=== PATIENT | female | born 1950 | race Caucasian/White ===

== ENCOUNTER 2021-11-17 19:49 | Inpatient (IN) | payer MEDICARE, BC ==
[~2021-11-17] VITALS: Ht 167.6 cm; Wt 88.5 kg
--- NOTE | 2021-11-17 12:00 | NUR ---
Received patient in [facility] with VS WNL. Alert and oriented x 4. Verbal. On 2 L NC. No signs of respiratory distress. Positive for COVID today 11/17. No cough noted. Able to ambulate with assistance. Gait unsteady. Uses bedpan. x1 void. Antibiotic given IV for UTI. Skin intact. Addendum: 11/18/21 at 0315 by ISIDORO NICHOLSON RN time error ---11/17/21 ---[id number] Received patient in [facility] with VS WNL. Alert and oriented x 4. Verbal. On 2 L NC. No signs of respiratory distress. Positive for COVID today 11/17. No cough noted. Able to ambulate with assistance. Gait unsteady. Uses bedpan. x1 void. Antibiotic given IV for UTI. Skin intact. Addendum: 11/18/21 at 0344 by ISIDORO NICHOLSON RN Acetaminophen order clarified for PO and given for headache. Addendum: 11/18/21 at 0657 by ISIDORO NICHOLSON RN Blood sugar was 76. Reeds juice given. Blood sugar rechecked after 30 min and is it at 112. Labs drawn. Patient SR on tele.
--- NOTE | 2021-11-17 19:55 | NUR ---
Dr. Vásquez at bedside for MSE.
[2021-11-17] MEDS ORDERED: IV NORMAL SALINE 1000 ML BAG IV ONE (20:15)
--- NOTE | 2021-11-17 20:29 | NUR ---
Xray at bedside.
[2021-11-17 20:37] LABS: ABG BASE EXCESS -5.8 mmol/L; ABG HCO3 19.9 mmol/L; ABG PCO2 39.7 mmHg (35.0-45.0); ABG PH 7.318 (7.350-7.450); ABG PO2 87.1 mmHg (75.0-100.0); ABG SITE RIGHT RADIAL; ABG TOTAL HEMOGLOBIN 11.3 G/dL (12.0-16.0); COHb 0.4 % (0.5-1.5); MetHb 0.3 % (0.0-1.5); VENT MODE Nasal Cannula
[2021-11-17] MEDS: IV NS 1000 ML 1,000 ML IV ONE ×2 (20:45→21:38)
[2021-11-17] MEDS ORDERED: CEFTRIAXONE 1 G in IV DEXTROSE 5% 50 ML IV ONE (20:45)
[2021-11-17] MEDS ORDERED: IV NS 1000 ML 1,000 ML IV ONE (20:45)
[2021-11-17 20:59] LABS: HEMATOCRIT 31.7 % (31.2-41.9); MEAN CORPUSCULAR HEMOGLOBIN 30.3 uug (24.7-32.8); PLATELET COUNT (AUTO) 147 K/uL (179-408)
[2021-11-17 21:02] LABS: CARBON DIOXIDE 23 mmol/L (21-32); CHLORIDE 104 mmol/L (98-107); CREATININE 1.6 mg/dL (0.6-1.3); GLUCOSE 158 mg/dL (74-106); POTASSIUM 4.5 mmol/L (3.5-5.1); UREA NITROGEN, BLOOD 31 mg/dL (7-18)
[2021-11-17] MEDS ORDERED: ZOLP5TAB2 PO (21:04)
[2021-11-17] MEDS ORDERED: LEFL20TA PO (21:04)
[2021-11-17] MEDS ORDERED: AMIT25TA9 PO (21:04)
[2021-11-17] MEDS ORDERED: LEVO200T PO (21:04)
[2021-11-17] MEDS ORDERED: METO-295 PO (21:04)
[2021-11-17] MEDS ORDERED: LIOT5TAB11 PO (21:04)
[2021-11-17] MEDS ORDERED: FENO145T PO (21:04)
[2021-11-17] MEDS ORDERED: METO25TA3 PO (21:04)
[2021-11-17] MEDS ORDERED: VENL75TA4 PO (21:04)
[2021-11-17] MEDS ORDERED: OXYC10TA49 PO (21:04)
[2021-11-17] MEDS ORDERED: HYDR200T81 PO (21:04)
[2021-11-17] MEDS ORDERED: ONDA4TAB5 PO (21:04)
[2021-11-17] MEDS ORDERED: ALFU10TA PO (21:04)
[2021-11-17] MEDS ORDERED: MULT-594 PO (21:04)
[2021-11-17] MEDS ORDERED: PREG100C PO (21:04)
[2021-11-17] MEDS ORDERED: MORP15TA PO (21:04)
[2021-11-17] MEDS ORDERED: TIZA4CAP PO (21:04)
[2021-11-17] MEDS ORDERED: ROSU5TAB PO (21:04)
[2021-11-17] MEDS ORDERED: BETH10TA2 PO (21:04)
[2021-11-17] MEDS ORDERED: GLIP5TAB13 PO (21:04)
[2021-11-17] MEDS ORDERED: MV-M1TAB18 PO (21:04)
[2021-11-17 21:15] LABS: ALANINE AMINOTRANSFERASE 99 U/L (14-59); ALKALINE PHOSPHATASE 46 U/L (50-136); ASPARTATE AMINOTRANSFERASE 189 U/L (15-37); BILIRUBIN,DIRECT 0.1 mg/dL (0.0-0.2); BILIRUBIN,TOTAL 0.2 mg/dL (0.2-1.0); TOTAL PROTEIN, SERUM 7.4 g/dL (6.4-8.2)
[2021-11-17] MEDS ORDERED: CEFTRIAXONE /D5W 50ML IVPB **ER PYXIS IV ONE (21:38)
--- NOTE | 2021-11-17 22:00 | NUR ---
Patient did not appear to have any lactic acidosis with a level of 0.6. Patient noted to have a slight elevation in BNP. ERMD consulted and advised to only infuse a total of 2L of NaCl.
[2021-11-17 22:26] LABS: *BILIRUBIN,URIN NEGATIVE (NEGATIVE); *BLOOD, URINE 2+ (NEGATIVE); *CLARITY,URINE CLEAR (CLEAR); *COLOR,URINE YELLOW (YELLOW); *KETONES,URINE NEGATIVE (NEGATIVE); *UROBILINOGEN,URINE 0.2 E.U./dl (NORMAL); LEUKOCYTE ESTERASE ,URINE 1+ (NEGATIVE); NITRITE, URINE POSITIVE (NEGATIVE); UGLUCOSE NEGATIVE (NEGATIVE)
--- NOTE | 2021-11-17 22:45 | NUR ---
EPIC panel call placed, awaiting call back from Brie Bravo CLEARANCE COORDINATOR
[2021-11-17] MEDS ORDERED: ONDANSETRON HCL 4 MG TABLET PO PRN (23:00)
[2021-11-17] MEDS ORDERED: ONDANSETRON 4 MG/2 ML VIAL IV PRN (23:00)
[2021-11-17] MEDS ORDERED: METOCLOPRAMIDE HCL 10 MG TABLET PO PRN (23:00)
[2021-11-17] MEDS ORDERED: ALBUTEROL SULFATE 8 GM HFA.AER.AD IH PRN (23:00)
[2021-11-17] MEDS ORDERED: ACETAMINOPHEN 650 MG/20.3 ML LIQUID UDC GT PRN (23:00)
[2021-11-17] MEDS ORDERED: AZITHROMYCIN IV 500 MG in IV DEXTROSE 5% 250 ML IV SCH ×2 (23:00→23:15)
[2021-11-17] MEDS ORDERED: Medication Not On Formulary EA (Oxycodone Hcl 1 TAB) PO PRN (23:00)
--- NOTE | 2021-11-17 23:01 | NUR ---
Brie Bravo returned call and patient will be going to be admitted to TELE. Patient will be going into room 318.
[2021-11-17] MEDS ORDERED: INSULIN REGULAR, HUMAN 300 UNIT/3 ML VIAL SQ PRN (23:15)
[2021-11-17] MEDS ORDERED: DEXTROSE 50% 50 ML DISP.SYRIN IV PRN (23:15)
--- NOTE | 2021-11-17 23:25 | NUR ---
Report given to KAI Gusman
[2021-11-17] MEDS ORDERED: TIZANIDINE HCL 4 MG TABLET PO PRN (23:45)
[2021-11-17] MEDS ORDERED: levoFLOXacin 500 MG/D5W 500 MG in PREMIXED 1 EACH IV SCH (23:45)
[2021-11-18] MEDS ORDERED: levoFLOXacin 500 MG/D5W 500 MG in PREMIXED 1 EACH IV ONE ×2
[2021-11-18 00:11] LABS: BACTERIA,URINE FEW /HPF (NONE SEEN); SQUAMOUS EPITHELIAL CELL,UR FEW /HPF (NONE SEEN); WBC,URINE 0-3 /HPF (0-3)
[2021-11-18 00:12] LABS: URIC ACID CRYSTALS,URINE MANY /HPF (NONE SEEN)
[2021-11-18] MEDS ORDERED: levoFLOXacin 500 MG/D5W 100 ML ONE (01:02)
[2021-11-18] MEDS: ACETAMINOPHEN 650 MG/20.3 ML LIQUID UDC PO PRN (03:19)
[2021-11-18 04:48] VITALS: BP 106/49
[2021-11-18] MEDS: LIOTHYRONINE SODIUM 5 MCG TABLET PO SCH (06:02)
[2021-11-18] MEDS: LEVOTHYROXINE SODIUM 200 MCG TABLET PO SCH (06:02)
[2021-11-18] MEDS: BLOOD SUGAR DIAGNOSTIC 1 EACH STRIP VI SCH ×4 (06:30→22:24)
[2021-11-18 07:21] LABS: HEMATOCRIT 29.6 % (31.2-41.9); MEAN CORPUSCULAR HEMOGLOBIN 30.9 uug (24.7-32.8); MEAN CORPUSCULAR VOLUME 92.1 fL (75.5-95.3); PLATELET COUNT (AUTO) 136 K/uL (179-408)
--- NOTE | 2021-11-18 08:00 | NUR ---
received this morning awake, watching tv in comfortable position. no ss of pain or sob. received being seen by dr tsang. pt states she doesn't use oxygen at home. room air 02 97%. dr. tsang made aware. pt denies sob. in pleasant mood. safety measures in place. cont covid precautions.
[2021-11-18 08:11] LABS: ALANINE AMINOTRANSFERASE 90 U/L (14-59); ALKALINE PHOSPHATASE 39 U/L (50-136); ASPARTATE AMINOTRANSFERASE 143 U/L (15-37); BILIRUBIN,TOTAL 0.2 mg/dL (0.2-1.0); CARBON DIOXIDE 24 mmol/L (21-32); CHLORIDE 106 mmol/L (98-107); GLUCOSE 126 mg/dL (74-106); POTASSIUM 4.2 mmol/L (3.5-5.1); TOTAL PROTEIN, SERUM 6.9 g/dL (6.4-8.2); UREA NITROGEN, BLOOD 27 mg/dL (7-18)
[2021-11-18 08:39] LABS: CREATININE 1.7 mg/dL (0.6-1.3)
[2021-11-18] MEDS: MULTIVITAMINS,THERAPEUTIC TABLET PO SCH (08:39)
[2021-11-18] MEDS: VENLAFAXINE XR 37.5 MG CAP.SR.24H PO SCH (08:39)
[2021-11-18] MEDS: METOPROLOL SUCCINATE XL 25 MG TAB.SR.24H PO SCH (08:40)
[2021-11-18] MEDS: PREGABALIN 100 MG CAPSULE PO SCH ×3 (08:40→16:57)
[2021-11-18] MEDS: DEXAMETHASONE SOD PHOSPHATE 4 MG INJ IV SCH (08:41)
[2021-11-18] MEDS: APIXABAN 2.5 MG TABLET PO SCH ×2 (08:44→20:48)
[2021-11-18] MEDS: FENOFIBRATE NANOCRYSTALLIZED 145 MG TABLET PO SCH (08:49)
[2021-11-18] MEDS ORDERED: LEFLUNOMIDE PO SCH (09:00)
[2021-11-18] MEDS ORDERED: Medication Not On Formulary EA (Rosuvastatin Calcium (Crestor) 1 TAB) PO SCH (09:00)
[2021-11-18] MEDS ORDERED: Medication Not On Formulary EA (Mv-Mn/Iron/FA/Herbal Cmplx#190 (Vitamin D3 Complete Capl PO SCH (09:00)
[2021-11-18] MEDS ORDERED: PANTOPRAZOLE SODIUM 40 MG VIAL IV ONE (09:00)
[2021-11-18] MEDS: BETHANECHOL CHLORIDE 10 MG TABLET PO SCH (09:51)
[2021-11-18] MEDS: HYDROXYCHLOROQUINE SULFATE 200 MG TABLET PO SCH ×2 (09:51→16:57)
[2021-11-18] MEDS: ALFUZOSIN HCL 10 MG TAB.SR.24H PO SCH (09:51)
[2021-11-18 11:41] VITALS: BP 119/53
[2021-11-18] MEDS ORDERED: BISACODYL 5 MG TABLET.DR PO ONE (12:00)
[2021-11-18] MEDS: DOCUSATE SODIUM 100 MG CAPSULE PO SCH ×3 (12:00→21:00)
--- NOTE | 2021-11-18 12:00 | NUR ---
seen and examined by manpower development specialist dolly with new order for covid pcr test carried out.
--- NOTE | 2021-11-18 12:59 | NUR ---
pt refused stool softeners. states she had a large soft bm this morning.
[2021-11-18] MEDS ORDERED: IV NS 1000 ML 1,000 ML IV PRN (13:30)
[2021-11-18] MEDS ORDERED: INSULIN REGULAR, HUMAN 300 UNIT/3 ML VIAL SQ PRN (13:45)
[2021-11-18] MEDS ORDERED: DEXTROSE 50% 50 ML DISP.SYRIN IV PRN (13:45)
[2021-11-18] MEDS ORDERED: INSULIN REGULAR, HUMAN 300 UNITS/3 ML VIAL SQ PRN (13:45)
[2021-11-18] MEDS: MEROPENEM 500 MG in IV NORMAL SALINE 50 ML IV SCH (14:14)
[2021-11-18] MEDS ORDERED: MORPHINE SULFATE IR 30 MG TABLET PO PRN (14:45)
[2021-11-18] MEDS ORDERED: VANCOMYCIN IV 1,250 MG in IV DEXTROSE 5% 250 ML IV SCH (15:00)
[2021-11-18 16:07] VITALS: BP 127/58
[2021-11-18] MEDS ORDERED: AMITRIPTYLINE HCL 50 MG TABLET PO SCH (18:00)
--- NOTE | 2021-11-18 18:07 | NUR ---
nsr on tele. no adverse reactions with atb use. needs attended. kept comfortable.
--- NOTE | 2021-11-18 19:15 | NUR ---
[id number] patient on bed, awake, no shortness of breath, on room air, no complaint of pain. Afebrile. Safety precautions provided. Call light within reach.
[2021-11-18 20:03] VITALS: BP 110/45
[2021-11-18] MEDS ORDERED: AMITRIPTYLINE HCL 25 MG TABLET PO SCH (21:00)
[2021-11-18] MEDS ORDERED: ATORVASTATIN 10 MG TABLET PO SCH (21:00)
--- NOTE | 2021-11-18 21:30 | NUR ---
Dr Rodriguez from [place] came to and able to speak with the patient, no new order.
--- NOTE | 2021-11-18 21:33 | NUR ---
Patient is compliant with the medications, she stated she`s taking glipizide at night as home medication, advise patient to inform the doctor in the morning about other medication regimen.
[2021-11-19] MEDS: MEROPENEM 500 MG in IV NORMAL SALINE 50 ML IV SCH ×2 (01:59→12:24)
[2021-11-19] MEDS: ACETAMINOPHEN 650 MG/20.3 ML LIQUID UDC PO PRN (02:06)
[2021-11-19 04:12] VITALS: BP 127/53
[2021-11-19] MEDS: LIOTHYRONINE SODIUM 5 MCG TABLET PO SCH (06:16)
[2021-11-19] MEDS: LEVOTHYROXINE SODIUM 200 MCG TABLET PO SCH (06:16)
[2021-11-19] MEDS: BLOOD SUGAR DIAGNOSTIC 1 EACH STRIP VI SCH ×2 (06:21→12:24)
[2021-11-19 06:31] LABS: ABG BASE EXCESS -2.1 mmol/L; ABG HCO3 22.4 mmol/L; ABG PCO2 37.4 mmHg (35.0-45.0); ABG PH 7.396 (7.350-7.450); ABG SITE RIGHT RADIAL; ABG TOTAL HEMOGLOBIN 10.2 G/dL (12.0-16.0); COHb 0.3 % (0.5-1.5); MetHb 0.3 % (0.0-1.5); O2Hb 95.2 % (94.0-97.0); VENT MODE ROOM AIR
--- NOTE | 2021-11-19 06:55 | NUR ---
Patient intermittently, able to go to the bathroom for voiding independently. No shortness of breath noted. For continuity of care. IV acces removed from left upper arm, re inserted at left wrist G-22.
[2021-11-19] MEDS ORDERED: PANTOPRAZOLE SODIUM 40 MG TABLET.DR PO SCH (07:00)
[2021-11-19 07:12] LABS: HEMATOCRIT 31.1 % (31.2-41.9); MEAN CORPUSCULAR HEMOGLOBIN 30.8 uug (24.7-32.8); MEAN CORPUSCULAR VOLUME 91.2 fL (75.5-95.3); PLATELET COUNT (AUTO) 152 K/uL (179-408)
[2021-11-19 07:50] LABS: ALANINE AMINOTRANSFERASE 90 U/L (14-59); ALKALINE PHOSPHATASE 42 U/L (50-136); ASPARTATE AMINOTRANSFERASE 115 U/L (15-37); BILIRUBIN,DIRECT 0.1 mg/dL (0.0-0.2); BILIRUBIN,TOTAL 0.2 mg/dL (0.2-1.0); CARBON DIOXIDE 30 mmol/L (21-32); CHLORIDE 108 mmol/L (98-107); CREATININE 1.5 mg/dL (0.6-1.3); FERRITIN 455 ng/mL (8-252); GLUCOSE 113 mg/dL (74-106); LACTATE DEHYDROGENASE 260 U/L (81-234); PHOSPHOROUS 3.4 mg/dL (2.5-4.9); POTASSIUM 4.7 mmol/L (3.5-5.1); TOTAL PROTEIN, SERUM 7.2 g/dL (6.4-8.2); UREA NITROGEN, BLOOD 28 mg/dL (7-18)
--- NOTE | 2021-11-19 08:00 | NUR ---
Awake, alert, oriented x 4. Room air with O2 sat of 97%. No tin distress. IVF infusing well.
[2021-11-19] MEDS ORDERED: MULTIVIT, IRON, MIN NO. 8, FA TABLET PO SCH (09:00)
[2021-11-19 10:00] VITALS: BP 140/61
[2021-11-19] MEDS: DEXAMETHASONE SOD PHOSPHATE 4 MG INJ IV SCH (10:21)
[2021-11-19] MEDS: DOCUSATE SODIUM 100 MG CAPSULE PO SCH (10:21)
[2021-11-19] MEDS: FENOFIBRATE NANOCRYSTALLIZED 145 MG TABLET PO SCH (10:22)
[2021-11-19] MEDS: MULTIVITAMINS,THERAPEUTIC TABLET PO SCH (10:22)
[2021-11-19] MEDS: VENLAFAXINE XR 37.5 MG CAP.SR.24H PO SCH (10:22)
[2021-11-19] MEDS: PREGABALIN 100 MG CAPSULE PO SCH ×3 (10:22→18:08)
[2021-11-19] MEDS: APIXABAN 2.5 MG TABLET PO SCH (10:23)
[2021-11-19] MEDS: HYDROXYCHLOROQUINE SULFATE 200 MG TABLET PO SCH ×2 (10:23→18:10)
[2021-11-19] MEDS: ALFUZOSIN HCL 10 MG TAB.SR.24H PO SCH (10:25)
[2021-11-19] MEDS: BETHANECHOL CHLORIDE 10 MG TABLET PO SCH (10:29)
[2021-11-19] MEDS: METOPROLOL SUCCINATE XL 25 MG TAB.SR.24H PO SCH (10:36)
[2021-11-19 11:05] LABS: BAND % (MANUAL) 6 % (0-10); LYMPHOCYTES % (MANUAL) 16 % (20-40); MONOCYTES % (MANUAL) 8 % (2-10); NEUTROPHILS % (MANUAL) 70 % (42-75)
[2021-11-19 11:31] VITALS: BP 135/67
[2021-11-19] MEDS ORDERED: LEVO500T90 PO (13:56)
[2021-11-19 16:00] VITALS: BP 149/71
--- NOTE | 2021-11-19 18:21 | NUR ---
With discharge order to home. Saline lock removed. DC instruction and Covid teaching given, verbalized understanding. Went home per wheelchair in fair condition, not in distress, afebrile.
== END 2021-11-19 18:32 | disposition home or self-care (01) | DRG 871 ==
LOC: ER 19:50 → TELE-TD3 23:17 → TELE3 23:59 → MEDSURG3 11-18 18:26
PROVIDERS: ADMIT Nurse Practitioner Acute Care; ATTEND Nurse Practitioner Acute Care
PROC: 05H633Z Insertion of Infusion Device into Left Subclavian Vein, Percutaneous Approach (ICD-10-PCS; principal; 2021-11-19)
PROC: B547ZZA Ultrasonography of Left Subclavian Vein, Guidance (ICD-10-PCS; 2021-11-19)
DX: A41.89 Other specified sepsis (principal); U07.1 COVID-19; G93.41 Metabolic encephalopathy; N17.0 Acute kidney failure with tubular necrosis; J96.90 Respiratory failure, unspecified, unspecified whether with hypoxia or hypercapnia; N39.0 Urinary tract infection, site not specified; D64.9 Anemia, unspecified; E03.9 Hypothyroidism, unspecified; E11.22 Type 2 diabetes mellitus with diabetic chronic kidney disease; E66.9 Obesity, unspecified; E78.5 Hyperlipidemia, unspecified; F39 Unspecified mood [affective] disorder; G89.4 Chronic pain syndrome; K59.00 Constipation, unspecified; N18.9 Chronic kidney disease, unspecified; Z88.0 Allergy status to penicillin; R74.01 Elevation of levels of liver transaminase levels; Z68.31 Body mass index [BMI] 31.0-31.9, adult; Z71.3 Dietary counseling and surveillance; Z87.440 Personal history of urinary (tract) infections; Z85.42 Personal history of malignant neoplasm of other parts of uterus; Z90.710 Acquired absence of both cervix and uterus; M79.0 Rheumatism, unspecified; Z90.722 Acquired absence of ovaries, bilateral; Z79.890 Hormone replacement therapy; Z96.643 Presence of artificial hip joint, bilateral; Z96.611 Presence of right artificial shoulder joint; Z96.612 Presence of left artificial shoulder joint; Z96.651 Presence of right artificial knee joint; L98.8 Other specified disorders of the skin and subcutaneous tissue; Z79.84 Long term (current) use of oral hypoglycemic drugs
CPT/HCPCS: 36415; 36600; 70030-TC; 71045; 83605; 83615; 83735; 84100; 84484; 85025; 85730; 86140; 87040; 87086; 93005; A4663; C9113; G0378; J0696; J1100; J1815; J1956; J2185; J3535; J7040; J7050; J8499; U0003